=== PATIENT | female | born 1985 | race Caucasian/White ===

== ENCOUNTER 2016-05-11 11:34 | Emergency (ER) | payer OTHER ==
--- NOTE | 2016-05-11 12:01 | DIAGNOSTIC IMAGING REPORT ---
PROCEDURE: XR CHEST 1 VIEW INDICATION: STROKE SYMPTOMS TECHNIQUE: Portable AP view 11:50 a.m. COMPARISON: None. FINDINGS: Lungs are clear. Heart and mediastinum are normal. Thorax is normal. IMPRESSION: 1. Negative chest.
--- NOTE | 2016-05-11 12:01 | DIAGNOSTIC IMAGING REPORT ---
PROCEDURE: CT HEAD WITHOUT CONTRAST INDICATION: STROKE TECHNIQUE: Axial CT images were acquired through the head. Coronal and sagittal reformations were created. COMPARISON: None. FINDINGS: No intracranial hemorrhage or extraaxial fluid collections. Ventricles are normal in size, shape and position. There is no mass, mass effect or midline shift. The reyes-white matter differentiation is normal. There is no edema. The calvarium is intact. The paranasal sinuses and mastoid air cells are normally aerated. The extracranial soft tissues and orbits are normal. IMPRESSION: 1. No CT evidence of acute intracranial process. 2. Findings discussed with Dr. Travis at noon All CT scans at this facility use dose modulation, iterative reconstruction, and/or weight-based dosing when appropriate to reduce radiation dose to as low as reasonably achievable.
--- NOTE | 2016-05-11 15:52 | DIAGNOSTIC IMAGING REPORT ---
PROCEDURE: MR BRAIN WITHOUT CONTRAST INDICATION: STROKE SYMPTOMS TECHNIQUE: Multiplanar multisequence MRI imaging of the brain without contrast. COMPARISON: Head CT 05/11/2016 FINDINGS: The midline structures are normally formed. The ventricular system is normal in size. Basal cisterns are patent. Flow voids in the major intracranial vessels are normal. Signal throughout the reyes and white matter is normal. No restricted diffusion to suggest acute ischemia. No evidence of acute or chronic intraparenchymal or extra-axial hemorrhage. No mass, mass effect, or midline shift. Normal signal in the visible bones. The sinuses are normally aerated. Visible extracranial soft tissues including the orbits are normal. IMPRESSION: 1. Normal MRI of the brain.
--- NOTE | 2016-05-11 17:09 | ED NURSING NOTES ---
Clinical Report - Nurses [facility] [address] [place] [address] 05/11/2016 11:35 Patient: PILY GARDUNO TRIAGE Triage time 1126 AM. Acuity: LEVEL 2. Chief Complaint: NUMBNESS. Alert. No acute distress. SEPSIS SCREEN: Sepsis Screen. Negative (no infection suspected/documented). BERTHA COMA SCORE: Bertha Coma Scale: 15- eyes open spontaneously (4); best verbal response- oriented x 4 (5); best motor response- obeys commands (6). --12:06 Bettina Reynoso R.N. 11:38 05/11/16. BP: 134/97. HR: 108. RR: 16. O2 saturation: 97% on room air. Temp: 98.7 F (oral). Pain level now: 11/16. --12:06 Bettina Reynoso R.N. 12:09 05/11/16. BP: 113/71. HR: 72. RR: 16. O2 saturation: 95% on room air. Pain level now: 05/17. --12:09 Bettina Reynoso R.N. Weight: 126.5 kg stated. Height/Length: 67 inches Per Patient. BMI: 43.7. --11:44 Bettina Reynoso R.N. Medications MetFORMIN HCl Oral. --12:07 Bettina Reynoso R.N. Lyrica Oral. --12:07 Bettina Reynoso R.N. LORazepam Oral. --12:07 Bettina Reynoso R.N. Ambien Oral. Simvastatin Oral. --12:08 Bettina Reynoso R.N. Multivitamin Oral. --12:08 Bettina Reynoso R.N. LamoTRIgine Oral. --12:37 Bettina Reynoso R.N. Sertraline HCl Oral. --12:37 Bettina Reynoso R.N. Hydrocodone-Acetaminophen Oral. --12:38 Bettina Reynoso R.N. Naproxen Oral. --12:39 Bettina Reynoso R.N. Colace Oral. --12:39 Bettina Reynoso R.N. The following entry was struck by Bettina Reynoso R.N., 12:08 (05/11/16) Reason - other. <<STRICKEN ENTRY-- GlyBURIDE Oral. --11:43 Bettina Reynoso R.N. --END STRIKE>> The following entry was struck by Bettina Reynoso R.N., 12:07 (05/11/16) Reason - other. <<STRICKEN ENTRY-- Codeine Sulfate Oral. --11:43 Bettina Reynoso R.N. --END STRIKE>>. Medication/allergy information source: the patient. --12:06 Bettina Reynoso R.N. Allergies Codeine. --12:08 Bettina Reynoso R.N. Glyburide. --12:09 Bettina Reynoso R.N. History Arrived by EMS. Historian: patient. Primary physician ([facility]). ( Pt brought over via EMS from [facility] due to numbness and tingling on left arm which radiates to her face, tongue, down to her left leg, tingling for approximately 1 hr and 1/2. Went to [place] [facility] to get evaluated.). This started 4 days. Onset was abrupt. Symptoms are still present. This is a new problem. She has had a headache, dizziness, weakness and numbness. No recent fall, impaired speech or trouble walking or swallowing. 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 See EMS report. PAST MEDICAL HX: Diabetes mellitus. Immunizations: up-to-date. The patient has had a hysterectomy. Sexual history - sexually active. No contraception. SOCIAL HX: Former smoker. History of weekly drug use: marijuana. No alcohol use. No infectious disease exposure. ABUSE ASSESSMENT: No report of abuse. SELF HARM ASSESSMENT: A self harm assessment was performed. The patient answered "no" to the question "Have you recently had thoughts about harming or killing others?". FALL RISK ASSESSMENT: Fall risk assessment completed. No fall risk identified. NUTRITIONAL RISK ASSESSMENT: The nutritional risk assessment revealed no deficiencies. FUNCTIONAL ASSESSMENT: Functional assessment: no impairments noted. LEARNING NEEDS ASSESSMENT: The learning needs assessment revealed no barriers. SKIN INTEGRITY ASSESSMENT: Skin integrity risk assessment completed. No skin integrity risk identified. --12:06 Bettina Reynoso R.N. PROBLEMS: Depression. Bipolar Disorder. Fibromyalgia. --11:44 Bettina Reynoso R.N. The following entry was modified by Bettina Reynoso R.N., 12:39 <<STRICKEN ENTRY-- Diabetes Mellitus. --11:43 Bettina Reynoso R.N. --END STRIKE>>. ADDITIONAL SURGERIES: Appendectomy. . Fatty liver disease. Tubal Ligation. --11:44 Bettina Reynoso R.N. Interventions ID band on patient. --12:06 Bettina Reynoso R.N. PHYSICAL ASSESSMENT To room via stretcher. Baseline functional status: usually alert, oriented x4 and cooperative. Verbal response: usually clear. Motor response: usually steady gait, moves all extremities equally and pre-existing weakness in the left side GENERAL / NEURO / PSYCH: Awake. Oriented X 4. Alert. Appears in no acute distress. Normal verbal response. Speech normal. No aphasia. Mood/affect normal. Moves all extremities. She has had new onset of constant numbness of the left face, arm, hand, leg and foot w/ tingling. No slurred speech. HEENT: No facial asymmetry noted. Pupils equal, round and reactive to light. Pharynx within normal limits. RESPIRATORY: Breath sounds within normal limits. Respirations not labored. CVS: Normal sinus rhythm noted. Capillary refill less than 2 seconds. SKIN: Skin is intact, warm and dry. --12:15 Bettina Reynoso R.N. NURSING PROGRESS NOTES 11:44 05/11/2016 Site #1 started via IV in the right antecubital space with an 20g angiocath, with aseptic technique and good blood return; one attempt. Blood drawn: rainbow set. Labeled in the presence of the patient and sent to the lab. Saline lock flushed with 10 mL saline. --11:44 Odette Nix R.N. 12:15 05/11/16. BP: 113/72. HR: 67. RR: 15. O2 saturation: 95% on nasal cannula at 2 liters/minute. Pain level now: 10/10. Additional comments: placed on O2 due to medication administration. --12:19 Bettina Reynoso R.N. Cardiac rhythm: normal sinus rhythm. The initial plan of care for this patient has been created This plan of care was discussed with the patient and family. Oxygen administered by nasal cannula at 2 liters. head loft worker, pulse oximeter and NIBP monitor placed on patient. Patient gowned. Warming measures: blanket applied. Reassurance given. Two patient identifiers checked. Call light placed in reach. Side rails up x 1. Bed placed in lowest position. Brakes of bed on. --12:19 Bettina Reynsoo R.N. 12:05 05/11/2016 Site #2 started via IV in the right antecubital space with an 20g angiocath; one attempt. Blood drawn: rainbow set. Labeled in the presence of the patient and sent to the lab. Saline lock flushed. --12:20 Bettina Reynoso R.N. 12:20 05/11/2016 Dilaudid (HYDROmorphone HCl PF) IVP 1 mg given over 2 minute(s) via site #2. Allergies verified, confirmed 5 rights and sedative warning given to the patient and patient's family. IV patency established. IV site checked: no pain, redness, or swelling. IV flushed thoroughly pre- and post-medication administration. IVP given by RN. --12:20 Bettina Reynoso R.N. Finger stick glucose: 129; performed by nurse; result shown to the ED physician. Reassurance given. Reassessment after oxygen administered and medication administered. She has had no adverse reaction. Overall patient status is improved- she states feels better. GENERAL / NEURO / PSYCH: The patient reports headache. The patient reports numbness. Alert. No decreased alertness. Oriented X 4. Affect appears normal. Appears anxious. Speech normal. She reports numbness. HEENT: Pupils equal, round and reactive to light. RESPIRATORY: No respiratory distress. SKIN: Skin is warm and dry. Call light placed in reach. Side rails up. --12:25 Bettina Reynoso R.N. EKG time: (1250 PM). EKG was ordered, performed by a nurse and shown to the ED physician. --12:29 Bettina Reynoso R.N. 12:35 05/11/2016 Dilaudid IVP Response: no adverse reaction pain is improving. Symptoms are the same. The patient feels better. --12:35 Bettina Reynoso R.N. 12:57 05/11/2016 Morphine IVP 4 mg given over 2 minute(s) via site #1. Allergies verified, confirmed 5 rights and sedative warning given to the patient. IV patency established. IV site checked: no pain, redness, or swelling. IV flushed thoroughly pre- and post-medication administration. IVP given by RN. --12:57 Bettina Reynoso R.N. Cardiac rhythm: normal sinus rhythm. head loft worker, pulse oximeter and NIBP monitor placed on patient. Reassurance given. Overall patient status is the same- she states feels the same. GENERAL / NEURO / PSYCH: The patient reports headache. No decreased alertness. Appears anxious. Speech normal. She reports constant numbness of the left face, arm, hand, leg and foot with tingling. Numbness is still present. HEENT: Pupils equal, round and reactive to light. Patient identifiers checked. --13:00 Bettina Reynoso R.N. 12:30 05/11/16. BP: 104/68 (regular adult cuff) taken on the left arm, via an automated monitor, while lying. HR: 68. RR: 14. O2 saturation: 96% on nasal cannula at 2 liters/minute. Temp: 97.8 F (oral). Pain level now: 6/10. --13:00 Bettina Reynoso R.N. 13:11 05/11/2016 Aspirin PO Tablets 325 mg given. Allergies verified and confirmed 5 rights. --13:11 Bettina Reynoso R.N. 13:14 05/11/2016 Morphine IVP Response: no adverse reaction symptoms are the same. The patient feels the same. --13:14 Bettina Reynoso R.N. ( Pt walked over to bathroom for no difficulties, pt does state having blurred vision and continues to have numbness on left side from "head to toe" comes and goes according to pt. Still complaining of shoulder pain, 6/10 morphine given, pt "prefers dilaudid"). --13:14 Bettina Reynoso R.N. 13:31 05/11/2016 Dilaudid (HYDROmorphone HCl PF) IVP 1 mg given over 2 minute(s) via site #1. Allergies verified, confirmed 5 rights and sedative warning given to the patient and patient's family. IV patency established. IV site checked: no pain, redness, or swelling. IV flushed thoroughly pre- and post-medication administration. IVP given by RN. --13:36 Bettina Reynoso R.N. 13:36 05/11/16. BP: 98/56. HR: 62. RR: 14 (regular and unlabored). O2 saturation: 98% on nasal cannula at 2 liters/minute. Temp: 97.8 F. Pain level now: 07/17. --13:37 Bettina Reynoso R.N. Cardiac rhythm: normal sinus rhythm. head loft worker, pulse oximeter and NIBP monitor placed on patient. Reassurance given. Two patient identifiers checked. Call light placed in reach. --13:37 Bettina Reynoso R.N. 13:44 05/11/16. ( PATIENT GIVEN MRI SCREENING FORM). --13:44 Mohsen Wetzel Reassessment after oxygen administered. She has had no adverse reaction. Overall patient status is improved- she states feels better. ( Pt awaiting on MRI, scheduled for 1430, pt aware of time, NPO in place, pt still anxious, light dimmed, warming measures applied. Emotional support provided.). GENERAL / NEURO / PSYCH: The patient reports numbness of the left face, arm, hand, leg and foot. Alert. No decreased alertness. Oriented X 4. Affect appears normal. Appears anxious. Speech normal. HEENT: Pupils equal, round and reactive to light. RESPIRATORY: No respiratory distress. SKIN: Skin is warm and dry. --14:05 Bettina Reynoso R.N. 14:49 05/11/2016 Morphine IVP 4 mg given over 1 minute(s) via site #1. Allergies verified, confirmed 5 rights and sedative warning given to the patient. IV patency established. IV site checked: no pain, redness, or swelling. IV flushed thoroughly pre- and post-medication administration. IVP given by RN. --14:49 Bettina Reynoso R.N. Cardiac rhythm: normal sinus rhythm. head loft worker, pulse oximeter and NIBP monitor placed on patient. Reassurance given. Overall patient status is the same- she states feels the same. ( Pt states that numbness). GENERAL / NEURO / PSYCH: Alert. Oriented X 4. Affect appears normal. HEENT: Pupils equal, round and reactive to light. Patient transported to [facility] by stretcher. Call light placed in reach. Side rails up. --14:49 Bettina Reynoso R.N. 14:44 05/11/16. BP: 95/58 (regular adult cuff) taken on the left arm, via an automated monitor, while lying. HR: 63. RR: 15 (regular and unlabored). O2 saturation: 95% on room air. Pain level now: 06/16. --14:49 Bettina Reynoso R.N. 16:47 05/11/2016 Zofran (Ondansetron HCl) IVP 4 mg given over 2 minute(s) via site #1. Allergies verified and confirmed 5 rights. IV patency established. IV site checked: no pain, redness, or swelling. IV flushed thoroughly pre- and post-medication administration. IVP given by RN. --16:47 Bettina Reynoso R.N. Reassurance given. Two patient identifiers checked. Call light placed in reach. Side rails up. Bed placed in lowest position. Brakes of bed on. --17:34 Bettina Reynoso R.N. DISPOSITION / DISCHARGE 16:30. ( On attempt to d/c pt. Pt. requesting rx's and stated, "I was supposed to get a rx for an anti-inflammatory and something for pain." This nurse told pt. did not have those medications as part of the d/c but I will consult with the to verify. On consulting with he declines stating he was rx any medications and pt. needed to f/u with her PCP. This nurse instructed pt. the was not going to rx pain medication. Pt appeared agitated, states is a loud voice, " he just lied to me then, he said he was giving me a rx. He just lied to my face then. I am not leaving without talking with him." notified that pt. appeared upset. consulted with pt. and states he was not going to rx medications. Pt. appeared upset when talking to the Dr. Pt states, "what is that look on your face what is with that face. You just do what you did this whole time and do nothing for me." When pt. asked to sign d/c instructions pt. 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 He wont be here very long."). --17:56 Odette Nix R.N. 16:30 05/11/16. BP: 103/56. HR: 65. RR: 16. O2 saturation: 98%. Temp: 98.6 F. [place] pain scale: 05/17. --18:06 Odette Nix R.N. 16:30. Departure time: 1630. Condition at departure: stable. No learning barriers present. Discharge instructions provided and reviewed with the patient. Reviewed referral to family practice for followup. Patient verbalized understanding. Written instructions provided in Telugu. The patient was discharged home and accompanied by family. She left the Emergency Department ambulatory. Medication list reviewed and validated. --18:07 Odette Nix R.N. 18:00. ( Patient was discharged and went to admitting desk and asked to speak to someone (supervisor drying and winding). I found patient in waiting room, crying. Patient visibly upset, attempting to relate what had happened to her. States she has been here all day and was told by the MD she would get an Rx for muscle relaxers and anti-inflammatory medication and then she did not. Patient states she asked to speak to the MD and felt disrespected by the doctor. I explained that I can't make the doctor prescribe something for her, but that I would pass along her concerns and encouraged her to telephone Dagoberto Stephenson in the morning. At first the patient was crying and stating she needed pain medicine and then she began saying that 'we' did nothing for her because she was numb when she came in and she was still numb. It's unclear if she is numb or in pain, but I told her I was sorry and hoped she would feel better soon and she left.). --18:23 Golden Adrian R.N. Locked/Released at 05/11/2016 18:24 by Golden Adrian R.N.
--- NOTE | 2016-05-11 17:09 | ED CLINICAL REPORT ---
Clinical Report - Physicians/Mid Levels [facility] [address] [place] [address] 05/11/2016 11:35 Patient: PILY GARDUNO Time Seen: 1135. Arrived- By ambulance. Historian- patient and EMS personnel. HISTORY OF PRESENT ILLNESS Chief Complaint: PARESTHESIA. This started off and on for the past week, patient was last known well (> 1 week ago) and is still present (worsening). It was abrupt in onset and has been intermittent and waxing/waning but is not gone now. The patient has had new onset of tingling of the right face, right arm, right hand, right leg and right foot. At its maximum deficit described as mild. When seen in the E.D., deficit described as mild. The patient has had altered mental status (anxious and agitated). Usually is alert and oriented X3 and has normal mobility. (reports pain the left shoulder that is intermittent. reports that it spread to the left face, head, tongue, and left side of the body. No other symptoms noted.). Similar symptoms previously: None. Recent medical care: Not recently seen/assessed. REVIEW OF SYSTEMS No chest pain or difficulty breathing. All systems otherwise negative, except as recorded above. PAST HISTORY See nurses notes. SOCIAL HISTORY Smoker- current status unknown. History of occasional drug use: marijuana. No alcohol use. Is a local resident. FAMILY HISTORY (family history of early strokes and heart disease on mother and father's side). ADDITIONAL NOTES The nursing notes have been reviewed. PHYSICAL EXAM Appearance: Alert. (tearful and anxious). Head: Head atraumatic. Eyes: Pupils equal, round and reactive to light. ENT: Normal ENT inspection. Airway intact. Pharynx normal. Neck: Normal inspection. Neck supple. No meningeal signs. CVS: Normal heart rate and rhythm. Heart sounds normal. Pulses normal. Respiratory: No respiratory distress. Breath sounds normal. Abdomen: Soft and nontender. No organomegaly. Back: Normal inspection. Skin: Skin warm and dry. Normal skin color. No rash. Normal skin turgor. Extremities: Extremities exhibit normal ROM. No lower extremity edema. Neuro: Alert. Oriented X 3. Mood/affect normal. Speech normal. Cranial nerves normal (as tested). No cerebellar findings. No motor deficit. No sensory deficit. LABS, X-RAYS, AND EKG EKG: No acute process. No acute ischemia. Normal EKG. Rate: 70. Normal P waves. Normal MAE. Normal QRS complex. Normal axis. Normal ST and T waves, QT and QTc. Prior EKG unavailable. The study has been interpreted contemporaneously. The study has been independently viewed by me. The EKG appears to be a good tracing. I do not agree with or confirm the computer reading of the EKG. Chest X-ray: No acute disease. Normal lung markings present. Normal heart size. Mediastinum normal. Great vessels normal. Soft tissues normal. No infiltrate. No fracture. No bony lesion present. Views: PA and lateral. Technique: good. The X-rays were independently viewed by me and interpreted by the radiologist. The X-rays were discussed with the radiologist (via pacs). CT Head: (PROCEDURE: CT HEAD WITHOUT CONTRAST INDICATION: STROKE TECHNIQUE: Axial CT images were acquired through the head. Coronal and sagittal reformations were created. COMPARISON: None. FINDINGS: No intracranial hemorrhage or extraaxial fluid collections. Ventricles are normal in size, shape and position. There is no mass, mass effect or midline shift. The reyes-white matter differentiation is normal. There is no edema. The calvarium is intact. The paranasal sinuses and mastoid air cells are normally aerated. The extracranial soft tissues and orbits are normal. IMPRESSION: 1. No CT evidence of acute intracranial process.). MRI Brain: Note- PROCEDURE: MR BRAIN WITHOUT CONTRAST INDICATION: STROKE SYMPTOMS TECHNIQUE: Multiplanar multisequence MRI imaging of the brain without contrast. COMPARISON: Head CT 05/11/2016 FINDINGS: The midline structures are normally formed. The ventricular system is normal in size. Basal cisterns are patent. Flow voids in the major intracranial vessels are normal. Signal throughout the reyes and white matter is normal. No restricted diffusion to suggest acute ischemia. No evidence of acute or chronic intraparenchymal or extra-axial hemorrhage. No mass, mass effect, or midline shift. Normal signal in the visible bones. The sinuses are normally aerated. Visible extracranial soft tissues including the orbits are normal. IMPRESSION: 1. Normal MRI of the brain. Study type: MRI without contrast. The study was independently viewed by me and interpreted by the radiologist. The study was discussed with the radiologist (via pacs). Laboratory Tests: CBC w Diff: (ESTER: 05/11/2016 11:40) ( MsgRcvd 05/11/2016 11:48) Final results Test Result Flag Units (Reference) WHITE BLOOD COUNT 7.4 K/uL (4.5-11.5) RED BLOOD COUNT 4.65 M/uL (4.00-5.20) HEMOGLOBIN 13.9 gm/dL (12.0-16.0) HEMATOCRIT 41.6 % (36.0-46.0) MEAN CELL VOLUME 90 fL (80-100) MEAN CORPUSCULAR HGB 30 pg (26-34) MEAN CORPUSCULAR HGB CONC 34 g/dL (31-37) RED CELL DISTRIBUTION WIDTH 13.3 % (11.6-14.8) PLATELET COUNT 258 K/uL (150-400) NEUTROPHIL % 56.0 % (50-75) LYMPH % 35.6 % (25-40) MONO % 5.1 % (3-14) EOSINOPHIL % 2.7 % (0-4) BASOPHIL % 0.6 % (0-2) PT with INR: (ESTER: 05/11/2016 11:40) ( MsgRcvd 05/11/2016 11:55) Final results Test Result Flag Units (Reference) INR 0.9 (0.8-1.2) Low Intensity Therapy: INR 1.5-2.0 PT range 18.5-23.1Mod.Intensity Therapy: INR 2.0-3.0 PT range 23.1-31.5High Intensity Therapy: INR 2.5-3.5 PT range 27.4-35.5High Intensity Therapy 2: INR 3.0-4.0 PT range 31.5-39.3 APTT 30 SECONDS (24-34) FIBRINOGEN 370 mg/dL (193-455) D-DIMER QUANTITATIVE 0.29 ug/mLFEU (0.27-0.52) The primary value of this quantitative assay relates toits negative predictive value (i.e. exclusion) of pulmonaryembolism/deep vein thrombosis/DIC.Elevated levels of d-dimer may also occur with:, age, cancer, inflammation, liver disease,post-op, infection, hematoma, coronary disease, peripheralarteriopathy, bleeding disorders and thrombolytic treatment.Results should be correlated with other clinical andradiological data.Testing Methodology: Latex Immunoassay CMP: (ESTER: 05/11/2016 11:40) ( MsgRcvd 05/11/2016 12:02) Final results Test Result Flag Units (Reference) GLUCOSE 136 H mg/dL (70-110) BUN 12 mg/dL (7-18) CREATININE 0.8 mg/dL (0.6-1.3) Estimated GFR >60 mL/min Estimated GFR- >60 mL/min Note: Persistent reduction over 3 months in eGFR<60 mL/min/1.73 m2 defines CKD. Patients with eGFR values>=60 mL/min/1.73 m2 may also have CKD if evidence ofpersistent proteinuria. Additional information may be foundat www.kidney.org. SODIUM 140 mmol/L (136-145) POTASSIUM 4.0 mmol/L (3.5-5.1) CHLORIDE 102 mmol/L (98-107) CARBON DIOXIDE 31 mmol/L (21-32) CALCIUM 9.3 mg/dL (8.5-10.1) TOTAL PROTEIN 7.7 g/dL (6.4-8.2) ALBUMIN 3.9 g/dL (3.3-5.0) BILIRUBIN, TOTAL 0.3 mg/dL (0.0-1.0) ALKALINE PHOSPHATASE 61 U/L (46-116) AST (SGOT) 29 U/L (15-37) ALT (SGPT) 49 U/L (12-78) . PROGRESS AND PROCEDURES Course of Care: The patient is a 30-year-old female presenting for evaluation of paresthesias the left side of her body as well as headache. At this time differential diagnosis includes CVA,peripheral neuropathy, or anxiety type reaction. Patient was called in as a code stroke. In discussion with the patient she has an NIH stroke scale of 1. Patient does have a history of diabetes as well as family history of factor V Leiden. Patient will be evaluated with CT scan immediately as well as laboratory work including chest x-ray and EKG. Patient is agreeable to the treatment and plan. No other acute other abnormalities noted. Acute CVA is the working diagnosis at this time. CT scan and laboratory studies results had returned. No acute bleeds noted or signs of prior strokes. Consult placed to [facility] for further recommendations about the patient's management. Because the patient has a low NIH stroke scale, felt at that TPA was not indicated. Also agree with this consultations recommendations. The patient could be admitted to the hospital for inpatient stroke workup and monitoring. I did have a discussion with the patient in regards to TPA and the risks and benefits of this medication. Do not feel that there are indicated at this time. Risks outweigh benefits. Spoke with the hospitalist about possible admission to the hospital for the patient's symptoms here in the emergency department. Patient is reporting slight improvement with her symptoms while here. Had discussion with patient in regards to management and she is agreeable to treatment and plan. The hospitalist came and evaluated the patient and found to be not CVA related. Did not feel patient needs to be admitted at this time. Because of the patient's presenting symptoms, would feel more comfortable the patient had a MRI performed. Patient is agreeable to the treatment plan. MRI was ordered. MRI did not show any acute abnormalities. Patient had been resting here in no acute distress. Because of the patient's negative workup, feel the patient's discomfort is most likely related tomusculoskeletal abnormality versus complex type of headachesyndrome. Do not feel this is due to CVA or other more sinister type of problem. Do not feel patient has meningitis. Symptoms are also not consistent with subarachnoid hemorrhage. During patient's discharge from the emergency department and instructions for outpatient follow-up, patient had requested pain medication as well as muscle relaxing medications. Patient reported that I promised these medications to her. Explained to patient that she could consider them and could have been prescribed by her outpatient doctor however at this point in time I do not feel comfortable with prescribing the patient this type of medication. Patient had spoke to the nurse and had called me a "liar." Patient was asked about this and patient states she did not call me a liar but said that I "lied." patient asked if there is anything else that we can help her out with here in the emergency department. Patient states there is nothing else we could help her out with and stated that there was nothing for us to do and that we did nothing for her in the emergency department. Explained the patient politely and calmly that she had had an extensive workup here in the emergency department for her symptoms and she did receive narcotic type pain medications while here in the emergency Department. Offered the patient any nonnarcotic pain medication that she would like. Patient was discharged by the RN. No further questions from the patient. I did hear from the nurse that the patient had called me inappropriate names in front of their daughter and the patient's significant other who is at bedside. I believe what she called me was a "juan jose licker." Unclear why patient was upset with her care here. Patient is ambulatory and steady without assistance. Patient walked out in no acute distress. Critical care performed (65 minutes). Time is exclusive of separately billable procedures. Time includes: direct patient care, patient reassessment, coordination of patient care, review of patient's medical records, medical consultation and documentation of patient care. Consult obtained. stroke neuro at [facility]. CLINICAL IMPRESSION 05/11/2016 11:38 BP: 134/97. HR: 108. RR: 16. O2 saturation: 97%. Temp: 98.7 F. Pain level now: 11/16. Adjustment disorder with anxiety. Mild nausea. Acute headache (left sided). Oxygen saturation normal. Paresthesia (left sided face, upper extremity, and lower extermity). INSTRUCTIONS Warnings: GENERAL WARNINGS: Return or contact your physician immediately if your condition worsens or changes unexpectedly, if not improving as expected, or if other problems arise. Specifically return if pain, vomiting, bleeding, breathing difficulty or fever. Your Current Medications: CONTINUE TAKING THE FOLLOWING MEDICATIONS: Ambien Oral. Colace Oral. Hydrocodone-Acetaminophen Oral. LamoTRIgine Oral. LORazepam Oral. Lyrica Oral. MetFORMIN HCl Oral. Multivitamin Oral. Naproxen Oral. Sertraline HCl Oral. Simvastatin Oral. Follow-up: Return to the emergency department as needed. Follow up with your doctor in three days. Reason for referral: recheck today's concerns. Summary of care provided to patient via paper. Screening today revealed the patient's blood pressure to be in the normal range. The patient should follow up with a primary care provider for blood pressure management. Understanding of the discharge instructions verbalized by patient. (Electronically signed by Thaddeus Bledsoe Dr. 05/11/2016 17:50)
--- NOTE | 2016-05-11 17:10 | ED ORDER SUMMARY ---
..... Patient: PILY GARDUNO OrderSheet [facility] VisitID: [id number] [place] [address] 30y, F Registration Date/Time: 05/11/2016 ORDER SHEET Weight: 126.5 kg (stated) Allergies: Codeine, Glyburide GENERAL ORDERS: CT Head wo Cont Urgent (11:39 05/11/2016 Poli Sevilla) (Ack 11:42 oerner) (11:53 KHoerner) Chest 1V Urgent (11:40 05/11/2016 Poli Sevilla) (Ack 11:42 KELLYoerner) (11:53 KHoerner) Combination Presser (Continuous) (stroke symptoms) (11:40 05/11/2016 Poli Sevilla) (Ack 11:42 Pettyner) (12:12 EHassan R.N.) Stroke Panel Stat (11:40 05/11/2016 Poli Sevilla) (Ack 11:42 KELLYoerner) (12:12 EHassan R.N.) EKG - ER Stat (11:40 05/11/2016 Poli Sevilla) (Ack 11:42 KELLYoerner) (12:12 EHassan R.N.) Pulse oximeter (11:40 05/11/2016 Poli Sevilla) (Ack 11:42 KELLYoerner) (12:12 EHassan R.N.) Troponin-I Urgent (12:00 05/11/2016 Poli Sevilla) (Ack 12:01 KELLYoejessica) (12:19 EHassan R.N.) MRI Brain/IAC wo Cont (Not Applicable) Urgent (13:21 05/11/2016 Poli Sevilla) (Ack 13:23 Mercedez) (15:40 KHoerner) Urine Urgent (13:22 05/11/2016 Poli Sevilla) (Ack 13:23 Mercedez) (13:36 EHassan R.N.) MEDICATION ORDERS: Aspirin PO 325 mg (Do not crush or chew, NOW) (12:43 05/11/2016 Poli Sevilla) (13:11 EHassan R.N.) IV FLUIDS: Morphine IV 4 mg (HIGH ALERT MEDICATION, NOW) (11:40 05/11/2016 Poli Sevilla) (12:57 Tin R.N.) IV Saline Lock (11:40 05/11/2016 Poli Sevilla) (11:44 Suzan R.N.) Dilaudid IV 1 mg (once now. may repeat in 15 minutes for pain > 5/10 in severity) (11:52 05/11/2016 Poli Sevilla) (12:20 Tin R.N.) Morphine IV 4 mg (HIGH ALERT MEDICATION, NOW) (14:47 05/11/2016 Poli Sevilla) (14:49 Tin R.N.) Zofran IV 4 mg (NOW) (16:44 05/11/2016 Poli Sevilla) (16:47 Tin R.N.) ORDER SHEET NOTES: [Electronically signed by Thaddeus Bledsoe Dr. (17:50 05/11/2016)] [Electronically signed by Golden Adrian R.N. (18:24 05/11/2016)] [Electronically locked/signed by Golden Adrian R.N. (18:24 05/11/2016)]
--- NOTE | 2016-05-11 17:10 | ED ORDER SUMMARY ---
..... Patient: PILY GARDUON OrderSheet [facility] VisitID: [id number] [place] [address] 30y, F Registration Date/Time: 05/11/2016 ORDER SHEET Weight: 126.5 kg (stated) Allergies: Codeine, Glyburide GENERAL ORDERS: CT Head wo Cont Urgent (11:39 05/11/2016 Poli Sevilla) (Ack 11:42 oerner) (11:53 KHoerner) Chest 1V Urgent (11:40 05/11/2016 Poli Sevilla) (Ack 11:42 KELLYoerner) (11:53 KHoerner) Microphone Operator (Continuous) (stroke symptoms) (11:40 05/11/2016 Poli Sevilla) (Ack 11:42 Ptetyner) (12:12 EHassan R.N.) Stroke Panel Stat (11:40 05/11/2016 Poli Sevilla) (Ack 11:42 KELLYoerner) (12:12 EHassan R.N.) EKG - ER Stat (11:40 05/11/2016 Poli Sevilla) (Ack 11:42 KELLYoerner) (12:12 EHassan R.N.) Pulse oximeter (11:40 05/11/2016 Poli Sevilla) (Ack 11:42 KELLYoerner) (12:12 EHassan R.N.) Troponin-I Urgent (12:00 05/11/2016 Poli Sevilla) (Ack 12:01 KELLYoejessica) (12:19 EHassan R.N.) MRI Brain/IAC wo Cont (Not Applicable) Urgent (13:21 05/11/2016 Poli Sevilla) (Ack 13:23 Mercedez) (15:40 KHoerner) Urine Urgent (13:22 05/11/2016 Poli Sevilla) (Ack 13:23 Mercedez) (13:36 EHassan R.N.) MEDICATION ORDERS: Aspirin PO 325 mg (Do not crush or chew, NOW) (12:43 05/11/2016 Poli Sevilla) (13:11 EHassan R.N.) IV FLUIDS: Morphine IV 4 mg (HIGH ALERT MEDICATION, NOW) (11:40 05/11/2016 Poli Sevilla) (12:57 Tin R.N.) IV Saline Lock (11:40 05/11/2016 Poli Sevilla) (11:44 Suzan R.N.) Dilaudid IV 1 mg (once now. may repeat in 15 minutes for pain > 5/10 in severity) (11:52 05/11/2016 Poli Sevilla) (12:20 Tin R.N.) Morphine IV 4 mg (HIGH ALERT MEDICATION, NOW) (14:47 05/11/2016 Poli Sevilla) (14:49 Tin R.N.) Zofran IV 4 mg (NOW) (16:44 05/11/2016 Poli Sevilla) (16:47 Tin R.N.) ORDER SHEET NOTES: [Electronically signed by Thaddeus Bledsoe Dr. (17:50 05/11/2016)] [Electronically signed by Golden Adrian R.N. (18:24 05/11/2016)] [Electronically locked/signed by Golden Adrian R.N. (18:24 05/11/2016)]
--- NOTE | 2016-05-11 18:24 | ED MAR SUMMARY ---
..... Medication Administration Record [facility] [address] [place] [address] Patient: PILY GARDUNO Visit ID: [id number] 30y, F Weight: 126.5 kg Height/Length: 67 in BMI: 43.7 ALLERGIES: Glyburide, Codeine Given 12:20 05/11/2016 Bettina Reynoso R.N. Medication Administered: DILAUDID [IVP] (HYDROMORPHONE HCL PF), Dose: 1 mg IVP over 2 minute(s), Site: #2 right AC. Medication Ordered: Dilaudid IV 1 mg (once now. may repeat in 15 minutes for pain > 5/10 in severity). Given 12:57 05/11/2016 Bettina Reynoso R.N. Medication Administered: MORPHINE [IVP], Dose: 4 mg IVP over 2 minute(s), Site: #1 right AC. Medication Ordered: Morphine IV 4 mg (HIGH ALERT MEDICATION, NOW). Given 13:11 05/11/2016 Bettina Reynoso R.N. Medication Administered: ASPIRIN [PO], Dose: 325 mg Tablets PO. Medication Ordered: Aspirin PO 325 mg (Do not crush or chew, NOW). Given 13:31 05/11/2016 Bettina Reynoso R.N. Medication Administered: DILAUDID [IVP] (HYDROMORPHONE HCL PF), Dose: 1 mg IVP over 2 minute(s), Site: #1 right AC. Medication Ordered: Dilaudid IV 1 mg (once now. may repeat in 15 minutes for pain > 5/10 in severity). Given 14:49 05/11/2016 Bettina Reynoso R.N. Medication Administered: MORPHINE [IVP], Dose: 4 mg IVP over 1 minute(s), Site: #1 right AC. Medication Ordered: Morphine IV 4 mg (HIGH ALERT MEDICATION, NOW). Given 16:47 05/11/2016 Bettina Reynoso R.N. Medication Administered: ZOFRAN [IVP] (ONDANSETRON HCL), Dose: 4 mg IVP over 2 minute(s), Site: #1 right AC. Medication Ordered: Zofran IV 4 mg (NOW).
--- NOTE | 2016-05-11 18:24 | ED MED RECONCILIATION SUMMARY ---
Patient: PILY GARDUNO Medication Reconciliation Report [facility] VisitID: [id number] [address] [place] [address] 30y, F Registration Date/Time: 05/11/2016 Weight: 126.5 kg Height/Length: 67 in. BMI: 43.7 ALLERGIES: Codeine, Glyburide The patient's Home Medications are listed below: CONTINUE TAKING THE FOLLOWING MEDICATIONS: Ambien Oral Colace Oral Hydrocodone-Acetaminophen Oral LamoTRIgine Oral LORazepam Oral Lyrica Oral MetFORMIN HCl Oral Multivitamin Oral Naproxen Oral Sertraline HCl Oral Simvastatin Oral The source(s) of the original Home Medication information: patient The following Medications were given to the patient in the Emergency Department: Dilaudid [IVP] IVP 1 mg, administered: 05/11/2016 12:20:00 PM Morphine [IVP] IVP 4 mg, administered: 05/11/2016 12:57:00 PM Aspirin [PO] PO 325 mg, administered: 05/11/2016 1:11:00 PM Dilaudid [IVP] IVP 1 mg, administered: 05/11/2016 1:31:00 PM Morphine [IVP] IVP 4 mg, administered: 05/11/2016 2:49:00 PM Zofran [IVP] IVP 4 mg, administered: 05/11/2016 4:47:00 PM The following Medications were prescribed to the patient: None.
--- NOTE | 2016-05-11 18:24 | ED MAR SUMMARY ---
..... Medication Administration Record [facility] [address] [place] [place] [address] Patient: PILY GARDUNO Visit ID: [id number] 30y, F Weight: 126.5 kg Height/Length: 67 in BMI: 43.7 ALLERGIES: Glyburide, Codeine Given 12:20 05/11/2016 Bettina Reynoso R.N. Medication Administered: DILAUDID [IVP] (HYDROMORPHONE HCL PF), Dose: 1 mg IVP over 2 minute(s), Site: #2 right AC. Medication Ordered: Dilaudid IV 1 mg (once now. may repeat in 15 minutes for pain > 5/10 in severity). Given 12:57 05/11/2016 Bettina Reynoso R.N. Medication Administered: MORPHINE [IVP], Dose: 4 mg IVP over 2 minute(s), Site: #1 right AC. Medication Ordered: Morphine IV 4 mg (HIGH ALERT MEDICATION, NOW). Given 13:11 05/11/2016 Bettina Reynoso R.N. Medication Administered: ASPIRIN [PO], Dose: 325 mg Tablets PO. Medication Ordered: Aspirin PO 325 mg (Do not crush or chew, NOW). Given 13:31 05/11/2016 Bettina Reynoso R.N. Medication Administered: DILAUDID [IVP] (HYDROMORPHONE HCL PF), Dose: 1 mg IVP over 2 minute(s), Site: #1 right AC. Medication Ordered: Dilaudid IV 1 mg (once now. may repeat in 15 minutes for pain > 5/10 in severity). Given 14:49 05/11/2016 Bettina Reynoso R.N. Medication Administered: MORPHINE [IVP], Dose: 4 mg IVP over 1 minute(s), Site: #1 right AC. Medication Ordered: Morphine IV 4 mg (HIGH ALERT MEDICATION, NOW). Given 16:47 05/11/2016 Bettina Reynoso R.N. Medication Administered: ZOFRAN [IVP] (ONDANSETRON HCL), Dose: 4 mg IVP over 2 minute(s), Site: #1 right AC. Medication Ordered: Zofran IV 4 mg (NOW).
--- NOTE | 2016-05-11 18:24 | ED DISCHARGE INSTRUCTIONS ---
Patient: PILY GARDUNO General Instructions [facility] VisitID: [id number] [place] [address] 30y, F Registration Date/Time: 05/11/2016 05/11/2016 11:38 BP: 134/97. HR: 108. RR: 16. O2 saturation: 97%. Temp: 98.7 F. Pain level now: 11/16. Adjustment disorder with anxiety. Mild nausea. Acute headache (left sided). Oxygen saturation normal. Paresthesia (left sided face, upper extremity, and lower extermity). INSTRUCTIONS Warnings: GENERAL WARNINGS: Return or contact your physician immediately if your condition worsens or changes unexpectedly, if not improving as expected, or if other problems arise. Specifically return if pain, vomiting, bleeding, breathing difficulty or fever. Your Current Medications: CONTINUE TAKING THE FOLLOWING MEDICATIONS: Ambien Oral. Colace Oral. Hydrocodone-Acetaminophen Oral. LamoTRIgine Oral. LORazepam Oral. Lyrica Oral. MetFORMIN HCl Oral. Multivitamin Oral. Naproxen Oral. Sertraline HCl Oral. Simvastatin Oral. Follow-up: Return to the emergency department as needed. Follow up with your doctor in three days. Reason for referral: recheck today's concerns. Summary of care provided to patient via paper. Screening today revealed the patient's blood pressure to be in the normal range. The patient should follow up with a primary care provider for blood pressure management. Understanding of the discharge instructions verbalized by patient. ADDITIONAL INFORMATION Adjustment Disorder An adjustment disorder is a condition that results from having a hard time coping with the normal stresses of life. You may feel you have too much to do and cant get it all done. These feelings may be triggered by divorce, job loss, someone you know dying, or by a positive event like getting a new job or getting . These feelings may interfere with your relationships at home and at work. With this condition, it is common to feel sad, guilty, hopeless and restless. These feelings may continue for weeks or months. It can be helpful to identify what is causing the additional stress and takes steps to get extra support. If new stressful events do not occur, it is likely that you will start feeling better within six months. Home Care: If you have been given a prescription for medicine, take it as directed. It helps to talk about your feelings and thoughts with family or friends that understand and support you. Follow Up with your doctor or therapist as advised by our staff. Let them know if this condition lasts more than six months without sign of improvement. For more information, contact the [employer] at 624-421-3334 or visit www.[facility].org. Get Prompt Medical Attention if any of the following occur: Worsening depression or anxiety Feeling out of control Thoughts of harming yourself or another Being unable to care for yourself Paraesthesias Paraesthesia refers to a burning or prickling sensation that is sometimes felt in the hands, arms, legs or feet. It can also occur in other parts of the body. It can also feel like tingling or numbness, skin crawling or itching.The sensation is usually painless. Most people have experienced pins and needles. This feeling happens when legs have been crossed for too long and pressure is placed on a nerve. This is a temporary paraesthesia. It quickly goes away once the pressure is relieved. There are many possible causes for chronic paraesthesias. These include such disorders as stroke, herniated disk (pressing on a nerve), trapped nerve in the shoulder, elbow or wrist (such as carpal tunnel syndrome), vitamin deficiencies or even certain medicines. Laboratory tests are needed to make an accurate diagnosis. These tests may include blood tests, X-ray, CT (computerized tomography) scan or a muscle test (electromyography).Depending on the cause, treatment may include physical therapy. Home Care: Do not make any changes to your medicines without advice from your doctor. If vitamins have been prescribed, remember to take them daily at the recommended dose. Because of a decrease in feeling, a numb hand or foot may be more prone to injury. Take care to protect these areas from cuts, bumps, bruises, white or other injury. Keep your nails trimmed and wash your hands and feet often. Wear shoes that fit well to avoid pressure points, blisters and ulcers. Look at your hands and feet carefully (including the soles of your feet and between your toes) at least once a week and notify your doctor of any open wounds or signs of infection. Follow Up with your doctor or as advised by our staff. You may need further testing to determine the exact cause of your paraesthesia. [NOTE: If blood tests, X-ray, CT scan or electromyography were done, specialists will review them. You will be notified of any new findings that may affect your care.] Get Prompt Medical Attention if any of the following occur: Numbness or weakness of the face, one arm or one leg Slurred speech, confusion, trouble speaking, walking or seeing Severe headache, fainting spell, dizziness or seizure Chest, arm, neck or upper back pain Loss of bladder or bowel control Open wound with redness, swelling or pus Headache [Unspecified] The cause of your headache today is not clear, but it does not appear to be the sign of any serious illness. Under stress, some people tense the muscles of their shoulder, neck and scalp without knowing it. If this condition lasts long enough, a TENSION HEADACHE can occur. A MIGRAINE HEADACHE is caused by changes in blood flow to the brain. A migraine attack may be triggered by emotional stress, hormone changes during the menstrual cycle, oral contraceptives, alcohol use, certain foods containing tyramine, eye strain, weather changes, missing meals, lack of sleep or oversleeping. Other causes of headache include a viral illness with high fever, head injury with concussion, sinus, ear or throat infection, dental pain and TMJ (jaw joint) pain. More serious but less common causes of headache include stroke, brain hemorrhage, brain tumor, meningitis and encephalitis. Home Care: If you were given pain medicine for this headache, do not drive yourself home. Arrange for a ride, instead. When you get home, try to sleep. You should feel much better when you wake up. Apply heat to the back of your neck to relieve neck muscle spasm. Migraine headaches may respond best to an ice pack on the forehead or at the base of the skull. If you are having nausea or vomiting, follow a light diet until your headache is relieved. If you have a migraine type headache, use sunglasses when in the daylight or around bright indoor lighting until symptoms improve. Bright glaring light can worsen this kind of headache. Follow Up with your doctor if the headache is not better within the next 24 hours. If you have frequent headaches you should discuss a treatment plan with your primary care doctor. By being aware of the earliest signs of headache, and starting treatment right away, you may be able to stop the pain yourself. Get Prompt Medical Attention if any of the following occur: Worsening of your head pain or no improvement within 24 hours Repeated vomiting (unable to keep liquids down) Fever of 100.4F (38C) or higher, or as directed by your healthcare provider Stiff neck Extreme drowsiness, confusion or fainting Dizziness, vertigo (dizziness with spinning sensation) Weakness of an arm or leg or one side of the face Difficulty with speech or vision You have been given the following additional information: Adjustment Disorder Paraesthesias Headache, Unspecified (Electronically signed by Thaddeus Bledsoe Dr. 05/11/2016 17:50)
--- NOTE | 2016-05-11 18:24 | ED MED RECONCILIATION SUMMARY ---
Patient: PILY GARDUNO Medication Reconciliation Report [facility] VisitID: [id number] [address] [place] [address] 30y, F Registration Date/Time: 05/11/2016 Weight: 126.5 kg Height/Length: 67 in. BMI: 43.7 ALLERGIES: Codeine, Glyburide The patient's Home Medications are listed below: CONTINUE TAKING THE FOLLOWING MEDICATIONS: Ambien Oral Colace Oral Hydrocodone-Acetaminophen Oral LamoTRIgine Oral LORazepam Oral Lyrica Oral MetFORMIN HCl Oral Multivitamin Oral Naproxen Oral Sertraline HCl Oral Simvastatin Oral The source(s) of the original Home Medication information: patient The following Medications were given to the patient in the Emergency Department: Dilaudid [IVP] IVP 1 mg, administered: 05/11/2016 12:20:00 PM Morphine [IVP] IVP 4 mg, administered: 05/11/2016 12:57:00 PM Aspirin [PO] PO 325 mg, administered: 05/11/2016 1:11:00 PM Dilaudid [IVP] IVP 1 mg, administered: 05/11/2016 1:31:00 PM Morphine [IVP] IVP 4 mg, administered: 05/11/2016 2:49:00 PM Zofran [IVP] IVP 4 mg, administered: 05/11/2016 4:47:00 PM The following Medications were prescribed to the patient: None.
== END 2016-05-11 16:30 | disposition home or self-care (01) ==
LOC: ED SRH 11:34 → EDBD 11:35 → ED SRH 16:30
DX: F43.22 Adjustment disorder with anxiety (principal); R11.0 Nausea; R52 Pain, unspecified; R20.2 Paresthesia of skin; Z82.3 Family history of stroke
CPT/HCPCS: 90074; 90100; 90616; 91556; 93070; 94001; 94050; 94060; 95059